=== PATIENT | female | born 1990 | race Hispanic/Latino ===

== ENCOUNTER 2017-11-26 15:18 | Inpatient (IN) | payer SELFPAY ==
[2017-11-26 16:01] LABS: #Basophils 0.1 thou/uL (0.0-0.2); #Eosinphils 0.3 thou/uL (0.0-0.7); #Lymphocytes 2.3 thou/uL (1.20-3.40); #Neutrophils 8.8 thou/uL (1.40-6.50); %Basophils 0.7 % (0.0-1.0); %Eosinophils 2.4 % (0.0-10.0); %Lymphocytes 18.2 % (21.0-51.0); %Neutrophils 70.8 % (42.0-75.0); Hemoglobin 12.7 g/dL (12.0-16.0); Mean Corpuscular HGB CONC 32.7 g/dL (32.0-36.0); Mean Corpuscular Hemoglobin 30.7 pg (27.0-31.0); Mean Platelet Volume 8.2 fL (7.4-10.4); Platelet Count 360 thou/uL (130-400); RBC Distribution Width 12.1 % (11.5-14.5); Red Blood Cell (RBC) Count 4.12 mill/uL (4.20-5.40); White Blood Cell (WBC) Count 12.4 thou/uL (4.8-10.8)
[2017-11-26 16:07] LABS: BHCG - Serum Negative (NEGATIVE); Pregs Control Background? CLEAR/WHITE (CLR/WHITE); Pregs Control Bar Appear? YES (CONTROL BAR)
[2017-11-26 16:21] LABS: ALT (SGPT) 101 U/L (8-55); AST (SGOT) 65 U/L (5-34); Albumin 3.6 g/dL (3.5-5.0); Alkaline Phosphatase 311 U/L (40-150); Anion Gap 9 mmol/L (10-20); BUN (Urea Nitrogen) 6 mg/dL (7.0-18.7); Calc. Creatinine Clearance 0 mL/min (70-130); Calcium 9.2 mg/dL (7.8-10.44); Carbon Dioxide 27 mmol/L (22-29); Chloride 101 mmol/L (98-107); Estimated GFR-MDRD Greater than 90; Globulin 3.6 g/dL (2.4-3.5); Glucose 88 mg/dL (70-105); Lipase 768 U/L (8-78); Potassium 3.4 mmol/L (3.5-5.1); Protein, Total 7.2 g/dL (6.0-8.3); Sodium 134 mmol/L (136-145)
[2017-11-26 16:42] LABS: Bilirubin Small (Negative); Blood, Urine Negative (Negative); Clarity CLOUDY (Clear); Glucose, Urine (Dipstick) Negative (Negative); Leukocyte Large (Negative); Nitrite Negative (Negative); Protein, Urine (Dipstick) Negative (Neg-Trace); Specific Gravity, Urine 1.007 (1.002-1.036)
[2017-11-26 16:43] LABS: Bacteria/HPF 1+ HPF (None Seen); Hyaline Casts/LPF 0-3 HYALINE CAST LPF (0-3 Hyaline); Pathc Cast-AUWi Flag 0.67 (0-2.49); RBC/HPF 0-3 HPF (0-3)
[2017-11-26 16:47] LABS: Pregnancy Test - Urine (BHCG) Negative (Negative); Pregu Control Background? CLEAR/WHITE (CLR/WHITE); Pregu Control Bar Appear? YES (CONTROL BAR); Specific Gravity 1.007 (1.002-1.036); Yeast-AUWi Flag 44.7 (0-25.0)
[2017-11-26 16:56] LABS: Yeast-All Forms None Seen HPF (None Seen)
--- NOTE | 2017-11-26 17:15 | ULT ---
SONOGRAM RIGHT UPPER QUADRANT: 11/26/17 HISTORY: Right upper quadrant pain. FINDINGS: Gallbladder contains multiple echogenic structures that show posterior acoustic shadowing. It is pred ominantly decompressed. There is no gallbladder wall thickening or pericholecystic fluid. Common duct is 0.5 cm. Liver is unremarkable without focal mass or intrahepatic biliary dilatation. No free flui d is apparent. IMPRESSION: Cholelithiasis. No evidence of acute biliary obstruction. POS: [facility]
[2017-11-26] MEDS ORDERED: Ondansetron HCl/PF 4 MG/2 ML Vial IVP PRN (20:03)
[2017-11-26] MEDS ORDERED: Ondansetron ODT 4 MG TAB SL PRN (20:03)
[2017-11-26] MEDS ORDERED: Acetaminophen 325 MG TAB PO PRN (20:03)
[2017-11-26] MEDS ORDERED: Ondansetron HCl/PF 4 MG/2 ML Vial SLOW IVP PRN (20:34)
[2017-11-26] MEDS: Sodium Chloride 0.9% 1,000 ML IV SCH (20:51)
[2017-11-26 21:39] VITALS: BMI 43.4
[2017-11-27] MEDS: Sodium Chloride 0.9% 1,000 ML IV SCH ×2 (04:59→11:35)
[2017-11-27 08:07] LABS: ALT (SGPT) 80 U/L (8-55); AST (SGOT) 44 U/L (5-34); Albumin 3.4 g/dL (3.5-5.0); Alkaline Phosphatase 311 U/L (40-150); Bilirubin, Direct 1.2 mg/dL (0.1-0.3); Bilirubin, Total 2.2 mg/dL (0.2-1.2); Lipase 587 U/L (8-78); Protein, Total 6.9 g/dL (6.0-8.3)
[2017-11-27] MEDS ORDERED: cefOXitin 2 GM in Sodium Chloride 0.9% 100 ML IVPB SCH (09:00)
[2017-11-27] MEDS ORDERED: cefOXitin 2 GM, Syringe 1 ML in Sterile Water 10 ML SLOW IVP SCH (09:00)
--- NOTE | 2017-11-27 10:06 | HP ---
CHIEF COMPLAINT: Epigastric abdominal pain. HISTORY OF PRESENT ILLNESS: A 27-year-old female with a 2-day history of midepigastric pain radiatin g to the back, associated with jaundice. She denies nausea or vomiting. She also reports dark urine . PAST MEDICAL HISTORY: Obesity. PAST SURGICAL HISTORY: None. MEDICATIONS: None. ALLERGIES: No known drug allergies. SOCIAL HISTORY: She is single. [place] No tobacco or alcohol. FAMILY HISTORY: Heart disease and melanoma. PHYSICAL EXAMINATION: VITAL SIGNS: Temperature 98.7, pulse 78, blood pressure 110/55. GENERAL: Morbidly obese female in no apparent distress. HEENT: She has some faint jaundice. LUNGS: Clear. HEART: Regular rate and rhythm. ABDOMEN: Obese, soft, nontender, no palpable mass. EXTREMITIES: Unremarkable. LABORATORY DATA: Her white count is 12, hemoglobin and hematocrit 12 and 38, platelet count 360. El ectrolytes are fine. Her T. bili was 3, it is down to 2.2, AST down from 65-44, alkaline phosphatase 311. Lipase is down from 768-587. HCG negative. ASSESSMENT: Biliary pancreatitis with improvement. PLAN: Laparoscopic cholecystectomy with intraoperative cholangiogram. CONSENT: I have discussed the planned procedure as well as risk of bleeding, infection, injury to bi le duct, injury to bowel, need to open. She understands and gives informed consent.
[2017-11-27] MEDS ORDERED: Bupivacaine 0.25% HCL 30 ML VIAL ONE (10:48)
[2017-11-27] MEDS ORDERED: Lidocaine 2% w/Epinephrine 1:200K 20 ML VIAL ONE (10:48)
[2017-11-27] MEDS ORDERED: Iothalamate Meglumine 60% 50 ML VIAL FS ONE ×2 (10:49→11:47)
[2017-11-27] MEDS ORDERED: Fentanyl 100 MCG/2 ML VIAL ONE (10:53)
[2017-11-27] MEDS ORDERED: Dextrose 50% Abboject 50 ML SYRINGE SLOW IVP PRN (12:27)
[2017-11-27] MEDS ORDERED: Mag-Al 1200 mg/1200 mg/30 ML UDCUP PO PRN (12:27)
[2017-11-27] MEDS ORDERED: Morphine 4 MG/ML Carpuject SLOW IVP PRN (12:27)
[2017-11-27] MEDS ORDERED: Calcium Carbonate 500 MG ChewTAB PO PRN (12:27)
[2017-11-27] MEDS ORDERED: HYDROcodone/Acetaminophen 10/325 mg Tablet PO PRN ×2 (12:27)
[2017-11-27] MEDS ORDERED: Dextrose 5% in Water 1,000 ML IV PRN (12:27)
[2017-11-27] MEDS ORDERED: hydrALAZINE 20 MG/ML VIAL SLOW IVP PRN (12:27)
[2017-11-27] MEDS ORDERED: Promethazine HCl 25 MG/ML VIAL IM PRN (12:27)
[2017-11-27] MEDS ORDERED: Ondansetron HCl/PF 4 MG/2 ML Vial IVP PRN (12:27)
--- NOTE | 2017-11-27 12:34 | OP ---
POSTOPERATIVE DIAGNOSIS: Biliary pancreatitis. SURGEON: Davy Steinberg M.D. PROCEDURE PERFORMED: Laparoscopic cholecystectomy with cholangiogram. INDICATIONS: This is a 27-year-old female who presented with severe abdominal pain and hyperlipasemi a. She had a CT scan showing cholelithiasis. FINDINGS: She had a gallbladder full of stones, dilated cystic duct. Cholangiogram showed no fillin g defects, free flow into the duodenum. PROCEDURE IN DETAIL: After informed consent was obtained, patient was taken to the operating room an d given general endotracheal anesthesia, placed in the supine position. The abdomen was prepped and draped in the usual fashion. Local anesthesia infiltrated subcutaneously and deep and a subumbilical incision was performed, subcu divided sharply. The fascia grasped and two stay sutures of 0 Vicryl placed to either side of midline. Midline incised. Digital palpation revealed no local adhesions. A blunt 10-12 mm trocar inserted. Pneumoperitoneum was created to a pressure of 15 mmHg. A 0 degree laparoscope inserted. Under direct vision, three 5 mm ports placed subcostally. The gallbladder wa s grasped and advanced superiorly, it is full of stones. The cystic duct was very dilated. It and t he artery were dissected out as well as the critical view. An incision was made at the base of the g allbladder in the cystic duct and an Arrow cholangiocatheter inserted. Intraoperative cholangiogram was performed utilizing fluoroscopy. It showed free flow in the duodenum, no filling defects. The c ystic duct was divided and triply ligated or doubly ligated with 0 PDS Endoloops. Also, a clip was p laced at the very end. The artery was triply ligated with Hemoclips and divided. The gallbladder wa s removed from its fossa utilizing electrocautery, removed from the abdomen in an Endosac through the umbilical site and sent to pathology for further analysis. Hemostasis was achieved with electrocaut kb. Trocars and retractors removed. The fascia closed with interrupted 0 Vicryl suture. The skin closed with interrupted 4-0 Rapide. Dermabond applied. The patient tolerated the procedure well and transferred to recovery in good condition. Sponge and needle count verified correct x2.
[2017-11-27] MEDS ORDERED: Meperidine HCl/PF 25 MG/ML VIAL SLOW IVP PRN (13:06)
[2017-11-27] MEDS ORDERED: HYDROmorphone 2 MG/ML VIAL SLOW IVP PRN (13:06)
[2017-11-27] MEDS ORDERED: D5 1/2 NS w/20 mEq KCL 1,000 ML ONE (13:23)
[2017-11-27] MEDS: D5 1/2 NS w/20 mEq KCL 1,000 ML IV SCH ×2 (13:28→23:26)
--- NOTE | 2017-11-27 14:57 | RAD ---
INTRAOPERATIVE CHOLANGIOGRAM: DATE: 11/27/17. HISTORY: Post laparoscopic cholecystectomy. Cholelithiasis. FINDINGS: Two intraoperative fluoroscopic images from intraoperative cholangiogram are submitted for interpreta tion. The cystic duct is cannulated. There is opacification of the common duct and right intrahepat ic bile ducts which demonstrate no persistent filling defect. There is mild prominence of the extrah epatic common duct. There is free spill of contrast seen into the small bowel. Surgical instruments overlie the right upper quadrant. IMPRESSION: Intraoperative cholangiogram demonstrating no persistent filling defect, and no biliary ductal dilat ation is appreciated. Correlation with intraoperative findings is recommended. POS: [facility]
[2017-11-27] MEDS: Piperacillin/Tazobactam 3.375 GM in Sodium Chloride 0.9% 100 ML IVPB SCH ×2 (15:23→20:14)
[2017-11-27] MEDS ORDERED: diphenhydrAMINE 50 MG/ML VIAL ONE (16:38)
[2017-11-27] MEDS ORDERED: Ondansetron HCl/PF 4 MG/2 ML Vial ONE (16:38)
[2017-11-27] MEDS ORDERED: Ketorolac Tromethamine 30 MG/ML VIAL ONE (16:38)
[2017-11-27] MEDS ORDERED: Glycopyrrolate 0.2 MG/ML 5 ML SYRINGE ONE (16:38)
[2017-11-27] MEDS ORDERED: Propofol 200 MG/20 ML VIAL ONE (16:38)
[2017-11-27] MEDS ORDERED: Dexamethasone 20 MG/5 ML VIAL ONE (16:38)
[2017-11-27] MEDS: Ketorolac Tromethamine 30 MG/ML VIAL IVP SCH ×2 (17:00→23:28)
[2017-11-27] MEDS: Famotidine 20 MG TAB PO SCH (20:13)
[2017-11-27] MEDS: Famotidine/PF 20 mg/2ml Vial SLOW IVP SCH (20:16)
[2017-11-28] MEDS: Piperacillin/Tazobactam 3.375 GM in Sodium Chloride 0.9% 100 ML IVPB SCH ×3 (03:38→15:04)
[2017-11-28 05:48] LABS: #Lymphocytes 2.5 thou/uL (1.20-3.40); #Monocytes 1.2 thou/uL (0.11-0.59); #Neutrophils 10.8 thou/uL (1.40-6.50); %Basophils 0.3 % (0.0-1.0); %Eosinophils 0.3 % (0.0-10.0); %Lymphocytes 16.9 % (21.0-51.0); %Neutrophils 74.5 % (42.0-75.0); Hemoglobin 11.8 g/dL (12.0-16.0); Mean Corpuscular HGB CONC 32.8 g/dL (32.0-36.0); Mean Corpuscular Hemoglobin 30.9 pg (27.0-31.0); Mean Corpuscular Volume 94.4 fl (81.0-99.0); Mean Platelet Volume 8.3 fL (7.4-10.4); Platelet Count 321 thou/uL (130-400); Red Blood Cell (RBC) Count 3.81 mill/uL (4.20-5.40); White Blood Cell (WBC) Count 14.5 thou/uL (4.8-10.8)
[2017-11-28] MEDS: Ketorolac Tromethamine 30 MG/ML VIAL IVP SCH ×2 (05:59→15:04)
[2017-11-28 06:12] LABS: ALT (SGPT) 62 U/L (8-55); AST (SGOT) 43 U/L (5-34); Alkaline Phosphatase 233 U/L (40-150); Anion Gap 8 mmol/L (10-20); BUN (Urea Nitrogen) 6 mg/dL (7.0-18.7); Bilirubin, Total 1.1 mg/dL (0.2-1.2); Calc. Creatinine Clearance 247 mL/min (70-130); Calcium 8.3 mg/dL (7.8-10.44); Carbon Dioxide 22 mmol/L (22-29); Chloride 109 mmol/L (98-107); Estimated GFR-MDRD Greater than 90; Glucose 110 mg/dL (70-105); Lipase 228 U/L (8-78); Potassium 3.9 mmol/L (3.5-5.1); Sodium 135 mmol/L (136-145)
[2017-11-28 07:34] VITALS: BP 120/59; TEMP 98.1
[2017-11-28] MEDS ORDERED: Enoxaparin Sodium 40 MG/0.4 ML SYRINGE SC SCH (09:00)
[2017-11-28] MEDS: D5 1/2 NS w/20 mEq KCL 1,000 ML IV SCH ×2 (09:46→16:55)
[2017-11-28] MEDS: Famotidine 20 MG TAB PO SCH (09:53)
[2017-11-28] MEDS: Famotidine/PF 20 mg/2ml Vial SLOW IVP SCH (10:55)
--- NOTE | 2017-11-28 11:09 | DIS ---
DATE OF ADMISSION: 11/26/2017 DATE OF DISCHARGE: 11/27/2017 ADMIT DIAGNOSIS: Cholecystitis, elevation in liver function tests. DISCHARGE DIAGNOSIS: Cholecystitis, elevation in liver function tests. PROCEDURES: Laparoscopic cholecystectomy with intraoperative cholangiogram by Dr. Steinberg without comp lication. CONDITION AT DISCHARGE: Improved. STAFF: Id[facility]. HOSPITAL COURSE: The patient was admitted, elevated lipase; however, on hospital day #1, it was decr eased and she felt better. She underwent laparoscopic cholecystectomy with intraoperative cholangiog mckayla by Dr. Steinberg which revealed no common duct obstruction. This morning she is tolerating diet with out difficulty. She is ambulatory and she is being discharged home. Prescriptions for pain medicine , nausea medicine was written. She will follow up with Dr. Steinberg in 2 weeks.
== END 2017-11-28 17:00 | disposition home or self-care (01) | DRG 417 ==
LOC: ERS 15:18 → ONC 18:05
PROVIDERS: ADMIT Surgery; ATTEND Surgery
PROC: 0FT44ZZ Resection of Gallbladder, Percutaneous Endoscopic Approach (ICD-10-PCS; principal; 2017-11-27)
PROC: BF101ZZ Fluoroscopy of Bile Ducts using Low Osmolar Contrast (ICD-10-PCS; 2017-11-27)
DX: K80.00 Calculus of gallbladder with acute cholecystitis without obstruction (principal); K85.10 Biliary acute pancreatitis without necrosis or infection; Z68.41 Body mass index [BMI] 40.0-44.9, adult; E66.9 Obesity, unspecified
CPT/HCPCS: 36415; 47532; 76705; 80053; 80076; 81003; 81015; 81025; 83690; 84703; 85025; 87070; 87077; 87186; 87205; 88304; A4216; J0131; J0694; J1100; J1200; J1610; J1885; J2270; J2405; J2543; J2704; J3010; J7050; Q9961; S0020; S0028